=== PATIENT | male | born 1980 | race Caucasian/White ===

== ENCOUNTER → 2020-06-25 11:58 | Outpatient (CLI) | payer BC, SELFPAY ==
[2014-03-11 15:49] VITALS: BMI 21.9
[2020-06-25 15:44] LABS: Vitamin D,25 Hydroxy 26.1 ng/mL
[2020-06-25 15:48] LABS: Anion Gap 3 (5-15); BUN 16 mg/dL (7-18); BUN/Creat Ratio 14.7 RATIO (10-20); Calcium,Total 9.1 mg/dL (8.5-10.1); Chloride 106 mmol/L (98-107); Cholesterol 198 mg/dL (200); Creatinine, Serum 1.09 mg/dL (0.70-1.30); EST Glomerular Filtration Rate 80 mL/min (>60); Est Glom Filt Rate - Afr Amer 97 mL/min (>60); Glucose 87 mg/dL (74-106); High Density Lipoprotein 38 mg/dL; Potassium 4.3 mmol/L (3.5-5.1); Sodium Level 140 mmol/L (136-145); Triglycerides 102 mg/dL; Very Low Density Lipoprotein 20 mg/dL (5-40)
== END ==
PROVIDERS: Visit Provider Family Medicine
DX: Z00.00 Encounter for general adult medical examination without abnormal findings (principal)
CPT/HCPCS: 36415; 80048; 80061; 82306; 84403; 84443

== ENCOUNTER → 2020-11-30 16:36 | Outpatient (CLI) | payer OTHER, SELFPAY ==
[2014-03-11 15:49] VITALS: BMI 21.9
[2020-11-30 18:40] LABS: Probe Check PASS; Specimen Processing Control PASS
== END ==
PROVIDERS: PCP Family Medicine; Referring Provider Family Medicine; Visit Provider Family Medicine
DX: Z20.822 Contact with and (suspected) exposure to COVID-19 (principal)
CPT/HCPCS: 87635; U0005; U0003

== ENCOUNTER → 2021-04-16 12:24 | Outpatient (CLI) | payer OTHER, SELFPAY ==
[2021-04-16 14:53] LABS: Absolute Lymphocyte Count 1.13 X10^3/uL (0.83-4.51); Basophil# 0.02 X10^3/uL; Basophil% 0.4 % (0-1); Eosinophil# 0.17 X10^3/uL; Hematocrit 48.3 % (40-54); Hemoglobin 16.3 g/dL (13.0-16.5); Lymphocyte # 1.13 X10^3/ul (0.83-4.51); Lymphocyte % 19.8 % (19-41); Mean Corp Hgb Conc 33.7 g/dL (32-36); Mean Corpuscular Hgb 28.9 pg (27.0-32.0); Mean Corpuscular Volume 85.6 fL (80-94); Mean Platelet Vol. 9.8 fl (6.2-12.0); Monocyte# 0.39 X10^3/uL; Monocyte% 6.8 % (0-10); NRBC Flagged by Analyzer 0 % (0-5); Neutrophil # 3.99 X10^3/uL (2.7-7.7); Neutrophil % 69.8 % (47-70); Platelet Count 197 K/mm3 (150-450); RBC Distribution Width CV 12.9 % (11.6-14.6); RBC Distribution Width SD 39.9 fl (35.1-43.9); Red Blood Count 5.64 M/mm3 (4.6-6.2); White Blood Count 5.7 K/mm3 (4.4-11.0)
[2021-04-16 15:33] LABS: ALB/GLOB Ratio 1.2 RATIO (0.9-2.4); AST(SGOT) 16 U/L (15-37); Alanine Aminotransfer ALT/SGPT 26 U/L (16-61); Albumin, Serum 4.3 g/dL (3.2-5.0); Alkaline Phosphatase 79 U/L (45-117); Amylase 88 U/L (25-115); Anion Gap 7 (5-15); BUN 15 mg/dL (7-18); BUN/Creat Ratio 14.7 RATIO (10-20); Bilirubin, Direct 0.19 mg/dL (0.00-0.30); Calcium,Total 9.5 mg/dL (8.5-10.1); Chloride 106 mmol/L (98-107); Creatinine, Serum 1.02 mg/dL (0.70-1.30); EST Glomerular Filtration Rate 86 mL/min (>60); Est Glom Filt Rate - Afr Amer 104 mL/min (>60); Globulin 3.7 g/dL (2.2-4.2); Glucose 83 mg/dL (74-106); Lipase 102 U/L (73-393); Potassium 3.6 mmol/L (3.5-5.1); Sodium Level 141 mmol/L (136-145)
== END ==
PROVIDERS: PCP Family Medicine; Referring Provider Family Medicine; Visit Provider Family Medicine
DX: R11.10 Vomiting, unspecified (principal); R42 Dizziness and giddiness
CPT/HCPCS: 36415; 80053; 82150; 82248; 83690; 85025

== ENCOUNTER → 2021-04-19 09:15 | Outpatient (CLI) | payer OTHER, SELFPAY ==
--- NOTE | 2021-04-19 09:17 | US_ITS ---
STUDY: ABDOMINAL ULTRASOUND - RIGHT UPPER QUADRANT REASON FOR VISIT: Male, 40 years old vomiting, rule out gallbladder disease TECHNIQUE: Ultrasound evaluation of the right upper quadrant was performed with real-time and static zazueta-scale imaging. TECHNICAL QUALITY: Adequate. COMPARISON: None. FINDINGS: Liver: The liver measures 16.2 cm. There is normal echogenicity of the liver. The bile ducts are within normal limits. There is hepatic color flow. The direction of portal flow is hepatopetal. There is a 5 mm x 6 mm x 6 mm echogenic nodule in the right lobe of the liver. This may represent a small hemangioma. Gallbladder: Normal distended gallbladder. The gallbladder wall measures 1.8 mm. There is a negative sonographic Mendiola''s sign. There is no pericholecystic fluid. There are no gallstones. A small amount of sludge is seen in the gallbladder lumen. Common Bile Duct (C.B.D.): The common bile duct measures 3.3 mm. Pancreas: Normal size of the head, body and tail of the pancreas. There is increased echogenicity of the pancreas. There is no demonstrated pancreatic mass or cyst. Right Kidney: Normal size of the right kidney. The right kidney measures 12.8 cm x 5 cm x 4 cm. Normal renal cortex. The right cortex measures 1 cm. There is no demonstrated renal mass or cyst. There is no right hydronephrosis. US/Abdomen Limited IMPRESSION: Sludge is seen in the gallbladder lumen. Findings suggestive of a 5 mm x 6 mm x 6 mm hemangioma in the right lobe of the liver. Electronically Signed: Luis Ortiz MD at 10:30 EST , Service support ,
== END ==
PROVIDERS: PCP Family Medicine; Referring Provider Family Medicine; Visit Provider Family Medicine
DX: R11.10 Vomiting, unspecified (principal)
CPT/HCPCS: 76705

== ENCOUNTER → 2021-04-30 09:40 | Outpatient (CLI) | payer OTHER, SELFPAY ==
--- NOTE | 2021-04-30 09:45 | NM_ITS ---
CLINICAL: 41-year-old male with reported history of chronic emesis. RADIONUCLIDE HEPATOBILIARY SCINTIGRAPHY COMPARISON: Abdominal ultrasound report 04/19/2021 FINDINGS: Following the intravenous administration of 5.5 mCi of 99m Tc Mebrofenin, hepatobiliary images reveal: 1. Relatively prompt and homogeneous radiopharmaceutical concentration is noted by a normal sized liver. No parenchymal defects are identified. 2. Gallbladder activity is identified at 15 minutes post radiopharmaceutical administration. 3. Small intestinal tract is observed at 45 minutes following tracer injection. 4. Washout of the radiopharmaceutical by the hepatic parenchyma appears qualitatively normal. 5. Duodenal-gastric reflux is defined at 45 minutes following radiotracer provision. The patient was administered a fatty meal (8 ounces Boost). The post fatty meal ingestion gallbladder ejection fraction calculated at 60 minutes following fatty meal administration was noted to be 53.0 % (normal greater than 30%). Duodenal-gastric reflux is persistently demonstrated following the administration of the fatty meal. NM/Hepatobilliary Img w/Pharm Int IMPRESSION: 1. A gallbladder ejection fraction calculated to be greater than 30% following the administration of an ingested fatty meal makes the probability of functional hepatobiliary disease (gallbladder and/or sphincter of Oddi dyskinesia) and/or organic hepatobiliary disease (chronic acalculous cholecystitis and/or cystic duct syndrome) to be low. (Kemar and Seng, J Nucl Med 43: 1603, 2002). 2. There is scintigraphic evidence of pre-post fatty meal duodenal gastric reflux as defined above. Electronically Signed: Nabeel Chavez DO at 22:44 EST Tel , Service support ,
== END ==
PROVIDERS: PCP Family Medicine; Referring Provider Family Medicine; Visit Provider Family Medicine
DX: K82.8 Other specified diseases of gallbladder (principal)
CPT/HCPCS: 78227; A9537

== ENCOUNTER 2021-07-15 10:14 | Outpatient (CLI) | payer OTHER, SELFPAY ==
--- NOTE | 2021-07-16 13:39 | PCM.HP.BLA ---
History and Physical Date of Admission: 07/16/21 41 M who presents to the office today for Referred by PCP for evaluation. Symptoms include intermittent bilateral upper abdominal pain, decreased appetite, nausea with emesis, loose stools alternating with constipation (once every two weeks) with onset late March 2021. Denies similar symptoms prior to this. Denies increased anxiety, depression, stress, diet change. Alleviating factors include a medication prescribed by PCP that is sometimes helpful. Aggravating factors include greasy/fatty foods. US abdomen performed 04.19.21 finding liver measuring 16.2cm with normal echogenicity. Nodule (?hemangioma) in right liver lobe. Normal distended gallbladder, negative Mendiola?s sign with small abound of sludge in lumen. Pancreas has increased echogenicity without mass or cyst. HIDA scan performed 04.30.21 with ejection fraction calculated to be greater than 30% following fatty meal. Evidence of pre-post fatty meal duodenal gastric reflux. ROS Const Constitutional: No anorexia, fatigue, fever(s), weight change or sleep problems Eyes Eyes: No change in vision ENT ENT: No abnormal hearing, difficulty swallowing, mouth lesions, tongue swelling or throat swelling Resp Respiratory: No cough or shortness of breath Cardio Cardiology: No chest pain at rest, chest pain with exertion, shortness of breath or dyspnea on exertion Gastro GI: No difficulty swallowing Genitourinary Male: No difficulty urinating or burning urination Musc Musculoskeletal: No joint pain, joint swelling, muscle weakness or decreased muscle mass Skin Skin: No hair loss in leg, yellowing of the eye, itchy eyes, rash, skin ulcer or skin swelling Neuro Neurology: No abnormal hearing, abnormal movements, confusion, unsteady gait/balance or memory loss Psych Psychiatric: No anxiety, No confusion and No memory loss Endo Endocrine: No fatigue or weight change Aller/Imm Allergy/Immunologic: No itchy eyes, throat swelling or tongue swelling Taras/Lymp Hematologic/Lymphatic: No easy bleeding, easy bruising or enlarged lymph nodes Exam Const General: cooperative and comfortable Nutritional Appearance: average body habitus and well nourished [facility] Head: normal to inspection Ears: hearing grossly normal bilaterally Nose: external nose normal Face and sinus: normal facial exam Mouth: oral mucosae normal Throat: posterior oropharynx normal Eyes General: appearance normal, both eyes and all related structures Neck Neck: normal visual inspection Chest Chest palpation & inspection: normal inspection of the chest and normal palpation of entire chest wall Resp Effort & Inspection: normal respiratory effort Auscultation: Bilateral: Clear to Auscultation Cardio Palpation: normal PMI Rate: regular rate Rhythm: regular rhythm GI Inspection: normal to inspection Auscultation: normal bowel sounds Percussion: normal to percussion Palpation: no hepatosplenomegaly Skin General: no rashes or lesions noted Neuro General: patient alert Extrem General: normal to inspection Psych Affect: normal affect Quality Reporting Tobacco Screening ([facility] 138) Smoking Status: Never smoker Assessment and Plan Assessment and Plan (1) Nausea & vomiting: Status: Acute Plan - Dr. Vazquez Friend, DO: The diagnosis was nausea vomiting would be peptic ulcer disease, atypical gastro esophageal reflux disease, and pyloric stenosis, hiatal hernia. We will perform upper endoscopy evaluate the upper GI tract. I will also put him on twice a day PPI therapy, Carafate and as needed Reglan therapy. Risk and benefits of Reglan therapy were explained to the patient and he will only would only be on this for 5 to 7 days. (2) Abdominal pain: Status: Acute Plan - Dr. George Worthy, DO: Abdominal pain comes and goes. It does not seem organic like it says gallbladder or appendix. It could be peptic ulcer disease. We will evaluate his upper GI tract for celiac disease, peptic ulcer disease, duodenitis, gastritis, esophagitis and eosinophilic gastroenteritis. (3) Weight loss: Status: Acute Plan - Dr. Vazquez Friend, DO: Weight loss is concerning. However I think most of his etiology of his problems will be found in the small bowel. He will undergo colonoscopy evaluation of the terminal ileum to look for signs of inflammatory bowel disease, Behcet's disease, microscopic colitis and possible gluten or enteropathy. Plan Details Other Medications: New: metoclopramide HCl (Reglan) administer 30 minutes before meals 5 mg PO Q8-10H 10 days 30 tabs 0RF sucralfate (Carafate) 10 mL PO TID 1,000 mL 0RF I have re-examined the patient. There are no clinical changes since date of exam.
[2021-07-16 13:47] VITALS: BP 198/107; PULSE 68; RESP 18; TEMP 36.7; O2SAT 100; BMI 24.3
[2021-07-16 13:50] VITALS: BP 200/110
[2021-07-16] MEDS: Lactated Ringers 1,000 ML 15 ML IV (13:55)
[2021-07-16 14:13] VITALS: BP 176/110
[2021-07-16 14:20] VITALS: BP 182/101
[2021-07-16 14:25] VITALS: BP 177/116
[2021-07-16 14:45] VITALS: BP 182/100
== END 2021-07-15 23:59 | disposition home or self-care (01) ==
LOC: EN 07-16 13:32 → AC 07-16 13:33 → PAT 08-14 10:14
PROVIDERS: PCP Family Medicine; Referring Provider Family Medicine; Visit Provider Internal Medicine Gastroenterology
DX: Z20.828 Contact with and (suspected) exposure to other viral communicable diseases (principal); R10.9 Unspecified abdominal pain; R11.2 Nausea with vomiting, unspecified
CPT/HCPCS: 87426; C9803; J7120; J2405

== ENCOUNTER 2021-08-13 07:46 | Outpatient (CLI) | payer OTHER, SELFPAY ==
--- NOTE | 2021-08-13 07:49 | ECHOD_ITS ---
Reason For Study: HTN Procedure This was a 2D Doppler, Color Flow transthoracic echocardiogram. The exam was of adequate technical quality. Exam performed in department. Left Ventricle Normal LV size. Left ventricular systolic function is normal. The estimated ejection fraction is 65 %. No evidence for diastolic dysfunction. No regional wall motion abnormalities noted. Right Ventricle Normal RV size. Normal systolic function. Atria Normal left atrium. Normal right atrium. No doppler evidence for ASD. Mitral Valve There is no mitral annular calcification. Normal mitral valve. Trivial mitral valve insufficiency. Tricuspid Valve Normal tricuspid valve. Mild tricuspid valve insufficiency. Right ventricular systolic pressure estimated to be 25 mmHg. Aortic Valve Trisinus/trileaflet aortic valve. Normal aortic valve. Pulmonic Valve The pulmonic valve is not well visualized. Trivial pulmonic valve insufficiency. Great Vessels The aortic root is not well visualized. Pericardium/Pleural No pericardial effusion. MMode/2D Measurements & Calculations LVIDd: 5.0 cm IVSd: 1.1 cm LA dimension: 3.3 cm LVIDs: 3.2 cm LVPWd: 0.99 cm RVDd: 4.0 cm FS: 36.9 % LAV(MOD-bp): 55.6 ml LA A4 area: 17.2 cm2 RA A4 area: 18.9 cm2 LAV(MOD-bp) Indexed: 23.4 ml/m2 LAV(MOD-sp2): 57.7 ml LAV(MOD-sp4): 46.2 ml Time Measurements MV dec time: 0.19 sec Doppler Measurements & Calculations MV E max yakov: 92.0 cm/sec Lat Peak E' Yakov: 10.9 cm/sec Med Peak E' Yakov: 9.2 cm/sec MV A max yakov: 73.9 cm/sec E/E' lat: 8.4 E/E' med: 10.0 MV E/A: 1.2 MV V2 max: 93.4 cm/sec MV P1/2t max yakov: 94.4 cm/sec Ao V2 max: 128.8 cm/sec MV max P.5 mmHg MV P1/2t: 58.0 msec Ao max P.6 mmHg MV V2 mean: 51.1 cm/sec MV dec slope: 476.9 cm/sec2 MV mean P.2 mmHg MVA(P1/2t): 3.8 cm2 MV V2 VTI: 28.8 cm LV V1 max: 119.3 cm/sec PA V2 max: 82.8 cm/sec TR max yakov: 236.8 cm/sec LV V1 max P.7 mmHg TR max P.4 mmHg ECHO/Echo Complete Interpretation Summary Left ventricular systolic function is normal. The estimated ejection fraction is 65 %. Trivial mitral valve insufficiency. Mild tricuspid valve insufficiency. Trivial pulmonic valve insufficiency. Right ventricular systolic pressure estimated to be 25 mmHg. No evidence for diastolic dysfunction. Ordering Physician: Scottie Oneill Referring Physician: Scottie Oneill Performed By: Salo Silveira RCS
--- NOTE | 2021-08-13 07:49 | AAAS_ITS ---
Reason For Study: HTN Aorta Measurements Aorta Doppler Measurements Proximal aorta measures1.96 x 1.96cm. in cross- Peak systolic flow velocities within the proximal sectional axis. aorta measure 125.3 cm/sec. Proximal aorta measures1.95cm. in longitudinal Peak systolic flow velocities within the mid aorta axis. measure 81.5 cm/sec. Mid aorta measures1.52 x 1.54cm. in cross- Peak systolic flow velocities within the distal sectional axis. aorta measure 103.4 cm/sec. Mid aorta measures1.56cm. in longitudinal axis. Distal aorta measures1.53 x 1.54cm. in cross- sectional axis. Distal aorta measures1.55cm. in longitudinal axis. Left Iliac Artery Left iliac artery measures 0.87 x 0.87 cm. in the cross-sectional axis. Left iliac artery measures 0.93 cm. in the longitudinal axis. Peak systolic velocity in the left iliac artery measures 134.4 cm/sec. Right Iliac Artery Right iliac artery measures 0.93 x 0.93 cm. in the cross-sectional axis. Right iliac artery measures 0.96 cm. in the longitudinal axis. Peak systolic velocity in the right iliac artery measures 127.1 cm/sec. Procedure Aorta IVC Iliac vasculature or bypass grafts [id number]. Exam performed in department. VL/AAA Screening Interpretation Summary The dimensions of the intra-abdominal aorta appear normal, without evidence of aneurysmal dilatation. The iliac arteries are also normal in caliber bilaterally. The intr a-abdominal aorta and iliac arteries appear patent, demonstrating normal, pulsatile arterial flow and normal peak systolic velocities. Ordering Physician: Scottie Oneill Referring Physician: Scottie Oneill Performed By: Gabby Castañeda RVT
== END 2021-08-13 23:59 | disposition home or self-care (01) ==
LOC: CVS 07:47
PROVIDERS: PCP Family Medicine; Referring Provider Family Medicine; Visit Provider Family Medicine
DX: I10 Essential (primary) hypertension (principal)
CPT/HCPCS: 76706; 93306

== ENCOUNTER → 2022-06-10 | Outpatient (CLI) | payer OTHER, SELFPAY ==
[2022-06-10 16:01] LABS: Anion Gap 8 (5-15); BUN 24 mg/dL (7-18); BUN/Creat Ratio 21.8 RATIO (10-20); Calcium,Total 9.1 mg/dL (8.5-10.1); Chloride 104 mmol/L (98-107); Cholesterol 172 mg/dL (200); EST Glomerular Filtration Rate 78 mL/min (>60); Est Glom Filt Rate - Afr Amer 95 mL/min (>60); Glucose 90 mg/dL (74-106); High Density Lipoprotein 38 mg/dL; Sodium Level 141 mmol/L (136-145); Triglycerides 65 mg/dL; Very Low Density Lipoprotein 13 mg/dL (5-40)
== END | disposition home or self-care (01) ==
LOC: MTLAB 13:10
PROVIDERS: PCP Family Medicine; Referring Provider Family Medicine; Visit Provider Family Medicine
DX: I10 Essential (primary) hypertension (principal)
CPT/HCPCS: 36415; 80048; 80061